=== PATIENT | male | born 1960 | race Caucasian/White ===

== ENCOUNTER → 2019-03-08 | Outpatient (CLI) | payer BC ==
--- NOTE | 2019-03-08 17:00 | KCIC ---
MRI Lumbar Spine without contrast History: Lumbago, chronic low back pain and bilateral extremity pain and numbness at times Technique: Multiplanar, multi sequential noncontrast MR imaging was performed of the lumbar spine. Comparison: January 25, 2015 Findings: Lumbar vertebral body stature is similar. There is minimal posterior subluxation of L4 relative to L5 and negligible anterior spondylolisthesis L3-4 as seen previously. Conus terminates near the superior aspect of L1. There is trace superior L5 endplate and superior S1 endplate edema likely reactive/degenerative in etiology. There is again hemangioma of S2. There is again advanced degenerative disc disease at L5-S1 with associated degenerative endplate change, mild to moderate degenerative disc disease greater posteriorly at L4-5 and minimally L3-4 and L1-2, also of the visualized T12-L1 level. T12-L1: There is minimal disc osteophyte complex, superimposed shallow protrusion more eccentric to the right lateral recess about to 3 mm AP without significant neural impingement or spinal stenosis. Neural foramina are adequate. There is mild facet hypertrophic change. L1-L2: There is minimal disc osteophyte complex and bulge. Spinal canal is overall adequate. There is moderate facet hypertrophic change and mild buckling of the ligamentum flavum. Neural foramina are adequate. L2-L3: There is prominence of posterior epidural fat. There is moderate to severe facet degenerative change and mild buckling of the ligamentum flavum. There is negligible disc osteophyte complex. Spinal canal is not significantly narrowed. Neural foramina are adequate. L3-L4: There is again broad posterior bulge. There is moderate to severe facet degenerative change and moderate buckling of the ligamentum flavum. Combination of findings again results in moderate to severe spinal stenosis with limited preserved subarachnoid space, degree of lateral recess stenosis bilaterally. There is again mild narrowing of the inferior left neural foramen with contact undersurface exiting left L3 nerve root by disc osteophyte complex and bulge extending to the extraforaminal region. Right neural foramen is overall adequate. L4-L5: There is disc osteophyte complex, superimposed bulge with indentation upon the ventral thecal sac greatest centrally and in the left lateral recess. In combination with mild buckling of the ligamentum flavum and moderate facet degenerative change, there is again mild narrowing of the far left lateral recess near the intervertebral disc space level. However there is new broad extrusion or sequestration extending below the intervertebral disc space in greatest dimension about 1.9 cm transverse by 0.8 cm AP by about 1.7 cm CC with inferior extent to the level of the inferior one third of the L5 vertebral body. There is resultant moderate to severe narrowing of the far right lateral recess and contact right L5 nerve root. There is very mild narrowing of the inferior neural foramina by disc osteophyte complex. L5-S1: There is again broad disc osteophyte complex and shallow bulge/protrusion, no significant impingement of the descending S1 nerve roots although complex proximity to the descending left S1 nerve root. Spinal canal is not significantly narrowed. There is fairly severe facet degenerative change. Disc osteophyte complex again results in moderate to severe neural foramina compromise bilaterally with contact exiting L5 nerve roots. Impression: 1. Comparing with the 2015 exam, there is now a broad extrusion or disc sequestration extending below the L4-5 intervertebral disc space, resulting in right lateral recess stenosis and contact right L5 nerve root. There is again moderate to severe spinal stenosis at L3-4 as described, mild lateral recess stenosis at the L4-5 intervertebral disc space level. There is degenerative disc disease greatest at L5-S1, multilevel spondylosis. There is multilevel facet degenerative change, mild abnormal alignment. There is neural foramina compromise as stated most notable bilaterally at L5-S1. Electronically signed by: Angel Vega MD (03/08/2019 4:57 PM) [facility]
== END | disposition home or self-care (01) ==
LOC: KCIC MRI 15:22
PROVIDERS: ATTEND Physician Assistant Medical
DX: M43.16 Spondylolisthesis, lumbar region (principal); M51.37 Other intervertebral disc degeneration, lumbosacral region; M25.78 Osteophyte, vertebrae; M51.25 Other intervertebral disc displacement, thoracolumbar region; M51.27 Other intervertebral disc displacement, lumbosacral region; M48.05 Spinal stenosis, thoracolumbar region; M47.817 Spondylosis without myelopathy or radiculopathy, lumbosacral region; G89.29 Other chronic pain
CPT/HCPCS: 72148

== ENCOUNTER → 2019-05-30 | Outpatient (CLI) | payer BC ==
[~2019-05-30] MED LIST: CARI350T PO; CETI10TA22 PO; DIPH25CA58 PO; DOCU-109 PO; FLUT1DIS3 IH; NAPR-514 PO; OXYC1TAB15 PO; VENTOLIN HFA18 GM INH; ZOLP10TA PO
[2019-05-30 15:34] LABS: BASO % 0 % (0-3); EOS # 0.1 x10^3/uL (0.0-0.7); EOS % 2 % (0-3); HEMOGLOBIN 15.9 g/dL (13.0-17.5); LYMPH # 1.7 x10^3/uL (1.0-4.8); LYMPH % 31 % (24-48); MEAN CORPUSCULAR HEMOGLOBIN 30 pg (25-35); MEAN CORPUSCULAR HGB CONC 34 g/dL (31-37); MEAN CORPUSCULAR VOLUME 89 fL (79-100); MONO # 0.4 x10^3/uL (0.0-1.1); MONO % 8 % (0-9); NEUT # 3.2 x10^3/uL (1.8-7.7); NEUT % 59 % (31-73); PLATELET COUNT 260 x10^3/uL (140-400); RED BLOOD COUNT 5.26 x10^6/uL (4.30-5.70); RED CELL DISTRIBUTION WIDTH 13.5 % (11.5-14.5); WHITE BLOOD COUNT 5.4 x10^3/uL (4.0-11.0)
[2019-05-30 15:56] LABS: ALBUMIN 4.4 g/dL (3.4-5.0); ALBUMIN/GLOBULIN RATIO 1.3 (1.0-1.7); CALCIUM 9.1 mg/dL (8.5-10.1); CREATININE 1.2 mg/dL (0.7-1.3); GFR 62.6; POTASSIUM 4.3 mmol/L (3.5-5.1); TOTAL BILIRUBIN 0.3 mg/dL (0.2-1.0); TOTAL PROTEIN 7.9 g/dL (6.4-8.2)
== END | disposition home or self-care (01) ==
LOC: SURGPAT 13:15
PROVIDERS: ATTEND Neurological Surgery
DX: Z01.818 Encounter for other preprocedural examination (principal); M51.26 Other intervertebral disc displacement, lumbar region; M48.061 Spinal stenosis, lumbar region without neurogenic claudication
CPT/HCPCS: 36415; 80053; 85025; 87641

== ENCOUNTER 2019-06-10 07:09 | Day surgery (SDC) | payer BC ==
--- NOTE | 2019-06-09 14:25 | HP ---
ADMIT DATE: 06/10/2019 PREOPERATIVE HISTORY AND PHYSICAL DATE OF SURGERY: 06/10/2019. HISTORY OF PRESENT ILLNESS: The patient is a pleasant 58-year-old who is having difficulty with low back pain and bilateral buttock pain. There is pain, which radiates down the right posterior thigh. There is also pain and numbness, which radiates to his legs and feet. The right side is more involved than the left. He rates his problem started in 1992 and 1993 and he has had intermittent difficulties since that time. Over the last few years, the pain has slowly worsened. He rates his pain as a 4-5/10. Running, standing and/or lifting increases pain. Sitting in a reclining position helps him. He has been taking oxycodone and naproxen. He has been through physical therapy and also core strengthening. He has had limited his activities recently. 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 PAST MEDICAL HISTORY: Arthritis. PAST SURGICAL HISTORY: Cholecystectomy and appendectomy, hernia surgery, right shoulder surgery. FAMILY HISTORY: Cancer. 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 . Denies substance abuse. Denies tobacco use. Drinks 2 alcoholic drinks daily. Drinks coffee. ALLERGIES: No known drug allergies. CURRENT MEDICATIONS: Naproxen, oxycodone, Soma, sinus medication, and allergy medication. REVIEW OF SYSTEMS: A 12-point review of systems was obtained and is noncontributory except for that mentioned above. PHYSICAL EXAMINATION: NEUROSURGERY EXAMINATION: GENERAL APPEARANCE: Alert, pleasant, no acute distress. HEAD: Normocephalic and atraumatic. SKIN: Warm and dry. MUSCULOSKELETAL: Lumbar paraspinal muscle bulk is normal, restricted range of motion of lumbar spine, dbkm-[id number]-lnyudelt tenderness of lower lumbar spine with palpation, normal range of motion of the lower extremities bilaterally. EXTREMITIES: No clubbing, cyanosis, or edema. NEUROLOGIC: Alert and oriented x 3, normal recent and remote memory, strength 5/5 in bilateral lower extremities, sensory was intact to light touch in bilateral lower extremities except for a diffuse decrease involving his right foot. Reflexes are trace and symmetric in lower extremities bilaterally, negative straight leg raising on the left, positive straight leg raising on the right, right buttock, posterior lateral thigh pain and forward-stooped gait. IMAGING: I reviewed a lumbar MRI scan. On that study from 03/08/2019, there is a principal abnormality at L3-L4 and L4-L5. At L3-L4, there is thickening of ligamentum flavum, which is associated with moderately severe lumbar spinal stenosis along with lateral recess stenosis bilaterally. There does appear to be contact of the left L3 nerve root and foramen. At L4-L5, he developed a new inferiorly herniated disc, which extends below the intervertebral disc space more than half of the body at L5. This is central and right sided and is associated with severe narrowing of the lateral recess and contact the right L5 nerve root. There is narrowing of the far left lateral recess at L4-L5 due to combination of ligamentum flavum thickening and buckling. ASSESSMENT/ PLAN: He has a problem with stenosis at L3-L4 and that is responsible for much of a neurogenic claudication-type symptoms, combined with a large inferior disc herniation L4-L5. My recommendation is lumbar microdecompressive surgery at L3-L4 combined with hemilaminotomy and laminectomy with microdiscectomy at L4-L5 from a right approach. I spoke with him about the surgery and the risks. I spoke about the technique and the operation and expected postoperative course. He would like to go ahead. We will make the arrangements. GAVIN HORNE MD DR: STEVE/gautam JOB#: [id number] / [id number] CARMELLA
[~2019-06-10] VITALS: Ht 180.3 cm; Wt 113.8 kg
[~2019-06-10 07:09] MED LIST changes: +BACITRACIN 50,000 UNIT in IV NORMAL SALINE 1000ML BAG 1,000 ML IRR ONE; +BUPIVACAINE-EPI 0.5%-1:200000 MPF 30 ML VIAL. INJ ONE; -DOCU-109 PO; +HYDROmorphone 2 MG/ML VIAL IV PRN; +IV RINGERS,LACTATED 1000ML 1,000 ML IV SCH; +ONDANSETRON PF 4 MG/2 ML VIAL. IV PRN; +PROCHLORPERAZINE 10 MG/2 ML VIAL. IV PRN; +fentaNYL PF VIAL 100 MCG/2 ML VIAL IV PRN
[2019-06-10] MEDS ORDERED: THROMBIN TOPICAL 20,000 UNIT SPRAY.SYRN KIT TP ONE (07:17)
[2019-06-10] MEDS ORDERED: GELATIN SPONGE SIZE 100. ONE (07:17)
[2019-06-10] MEDS ORDERED: KETOROLAC 60 MG/2 ML INJ FOR OR. ONE (07:17)
[2019-06-10] MEDS ORDERED: PROPOFOL 100 ML IV ONE (08:00)
[2019-06-10] MEDS ORDERED: DESFLURANE > 120 MINUTES IH ONE (08:08)
[2019-06-10] MEDS ORDERED: GLYCOPYRROLATE 1 MG/5 ML VIAL. ONE (08:08)
[2019-06-10] MEDS ORDERED: NEOSTIGMINE METHYLSULFATE 5 MG/5 ML SYRINGE. ONE (08:09)
[2019-06-10] MEDS ORDERED: MIDAZOLAM HCL/PF 2 MG/2 ML VIAL. ONE (08:09)
[2019-06-10] MEDS ORDERED: ROCURONIUM 50 MG/5 ML VIAL. ONE (08:09)
[2019-06-10] MEDS ORDERED: REMIFENTANIL 2 MG VIAL. IV ONE (08:09)
[2019-06-10] MEDS ORDERED: fentaNYL PF VIAL 100 MCG/2 ML VIAL ONE (08:09)
[2019-06-10] MEDS ORDERED: PROPOFOL 20 ML IV ONE (08:10)
[2019-06-10] MEDS ORDERED: LIDOCAINE 2% PF 5 ML VIAL. ONE (08:10)
[2019-06-10] MEDS ORDERED: DEXAMETHASONE SOD PHOS 4 MG/ML VIAL ONE (08:10)
[2019-06-10] MEDS ORDERED: ONDANSETRON PF 4 MG/2 ML VIAL. ONE (08:10)
[2019-06-10] MEDS ORDERED: PHENYLEPHRINE 10 MG/ML VIAL. ONE (08:10)
[2019-06-10] MEDS ORDERED: SCOPOLAMINE 1.5MG PATCH. TD ONE (09:00)
[2019-06-10] MEDS: MORPHINE SULFATE 2 MG/ML VIAL. IV PRN ×2 (12:39→12:57)
[2019-06-10] MEDS: fentaNYL PF VIAL 100 MCG/2 ML VIAL IV PRN ×2 (12:40→12:57)
[2019-06-10] MEDS ORDERED: DOCU-109 PO (12:45)
--- NOTE | 2019-06-10 12:46 | DISCH ---
DISCHARGE INSTRUCTIONS Condition on Discharge Condition on Discharge: Stable Activity After Discharge Activity Instructions for Disc: Activity as tolerated, Avoid exertion Other activity instructions: no driving for a week Bathing Instructions: Shower-keep dressing dry Lifting Instructions after Dis: No heavy lifting, No pulling or pushing, Do not lift >10 pounds Diet after Discharge Additional Diet Restrictions: resume home diet Wound Incision Care Wound/Incision Care: Ice to area for comfort Other wound/incision instructi: may remove dressing in 48 hour if dry then may shower, no soaking Contacting the after DC Call your doctor for: Concerns you may have Follow-Up Follow up with: Dr. Horne's nurse in 2 weeks [phone] GAVIN HORNE MD Jun 10, 2019 12:46
[2019-06-10] MEDS ORDERED: oxyCODONE/APAP 5/325 1 TAB TABLET PO ONE (13:15)
[2019-06-10 13:45] VITALS: BP 141/88
--- NOTE | 2019-06-10 20:15 | OP ---
DATE OF SURGERY: 06/10/2019 PREOPERATIVE DIAGNOSES: 1. Lumbar spinal stenosis, L3-L4. 2. Herniated lumbar disc, lateral recess stenosis L4-L5, right. POSTOPERATIVE DIAGNOSES: 1. Lumbar spinal stenosis, L3-L4. 2. Herniated lumbar disc, lateral recess stenosis L4-L5, right. OPERATION PERFORMED: 1. Lumbar laminectomy from a right direct approach, L3-L4. 2. Lumbar microdecompression and microdiscectomy L4-L5, right. The operation was done with EMG monitoring, SSEP monitoring, fluoroscopy, and microscopic dissection. SURGEON: Shayne Horne M.D. CORRECTION OFFICER PENITENTIARY: Mila Purcell APRN OPERATIVE INDICATIONS: The patient is a pleasant 58-year-old man who developed intractable back and primarily right lower extremity pain. On imaging studies, he had lumbar spinal stenosis at L3-L4 and inferiorly herniated disc at L4-L5. He failed conservative measures including physical therapy and I recommended lumbar surgery. I spoke about the surgery and the risks, the technique and he understood and wished to go ahead. DESCRIPTION OF PROCEDURE: Following general endotracheal anesthesia, the patient was positioned prone on the Palomo table. Lumbar region prepped and draped in standard fashion. AD hose and A-V impulse boots were applied for DVT prophylaxis. A microscope was draped. Fluoroscopy was draped and brought into the field. Monitoring was established. Ancef 2 grams was given less than 1 hour prior to initiation of the surgery. Using fluoroscopic guidance, a midline incision was made extending from upper L3 to inferior L5, dissected down through skin and subcutaneous tissue and reflected the paraspinal muscles and placed a Opheim microdisk retractor. I focused my attention first at L4-L5. I brought in the high speed air drill and there was considerable degenerative thickening of the facet joint and I drilled and worked and removed this material to gain access to the lamina, which I drilled with the high speed air drill through the microscope using microscopic technique. I performed a generous partial foraminotomy and then carried my bone work inferiorly to the inferior aspect of the pedicle of L5. I peeled away the thickened ligamentum flavum from above and peeled this away from medial to lateral and widely exposed the area. I gently retracted the dura medially. There was considerable scarring and there was a sequestered sac inferiorly with fluid. I opened this up and immediately the region was better decompressed. I entered into the disc space by excising the annulus with #11 blade and performed a discectomy and again as I worked, the area became very well decompressed. I explored, I carried my bone work further inferiorly. I felt that I had an excellent decompression. The dura was soft and mobile, but the operation in this area was difficult because of considerable scarring and I did not want to create a dural laceration, which introduced some caution. After I felt that I had an excellent decompression, I irrigated copiously and then I moved superiorly to L3-L4 where I drilled a generous hemilaminotomy and then tilted the patient away and drilled across the midline with a high speed air drill. There was considerable adipose tissue along with very thickened ligamentum flavum and I peeled this material away and fully decompressed the central canal on the right side, performing a partial foraminotomy. The disc was relatively firm and no discectomy was warranted. I irrigated copiously. I felt that I had an excellent decompression of both levels. I obtained excellent hemostasis. I closed the wound in layers with absorbable suture and the skin was closed with 4-0 subcuticular stitch. The operation went very well. The patient awakened uneventfully in recovery room in excellent condition. I was quite pleased with the surgery. SHAYNE HORNE MD DR: STEVE/gautam JOB#: [id number] / [id number] CARMELLA
--- NOTE | 2019-06-13 18:11 | PATHOLOGY ---
[facility] Accession Number: [id number] . 01 Material submitted: . vertebral column - LUMBAR DISC AND DECOMPRESSION . 01 Clinical history: . Lumbar stenosis, herniated disc. . 02 Diagnosis: Segments of fibrocartilaginous tissue and bone, lumbar disc and decompression: - Degenerative changes of fibrocartilaginous tissue. (JPM:chassis inspector; 06/13/2019) MBR/06/13/2019 . 02 Comment: There is no evidence of an acute inflammatory process or malignancy. (JPM:chassis inspector; 06/13/2019) . 02 Electronically signed: . Jonatan Burrows MD, Pathologist NPI- [id number] . 01 Gross description: . Received in formalin labeled "Ezra Worrell, lumbar disc and decompression" is a 4.5 x 4.5 x 2.0 cm aggregate of pedersen-brown rubbery soft tissue and scant bone. Professor Of Public Administration sections are submitted in cassette A1 following decalcification. ([facility] [place]; 06/12/2019) SYC/SYC . 02 Pathologist provided ICD-10: M99.73, M51.26 . 02 CPT . 608364, 034821 Specimen Comment: A courtesy copy of this report has been sent to Specimen Comment: [phone], . Specimen Comment: Report sent to / DR JONES Performed at: 01 [facility] [address], [place] [id number] MD Jay Walker MD Phone: [phone] Performed at: 02 [facility] [address] [place], [place] [id number] MD Jonatan Burrows MD Phone: [phone]
== END 2019-06-10 14:22 | disposition home or self-care (01) ==
LOC: SURG 07:09
PROVIDERS: ATTEND Neurological Surgery
DX: M51.26 Other intervertebral disc displacement, lumbar region (principal); M48.061 Spinal stenosis, lumbar region without neurogenic claudication; Z87.39 Personal history of other diseases of the musculoskeletal system and connective tissue; Z90.49 Acquired absence of other specified parts of digestive tract; Z98.890 Other specified postprocedural states; Z72.89 Other problems related to lifestyle
CPT/HCPCS: 63030; 63047; 76000; 88304; 88311; 97162; 97530; A7015; J0696; J1100; J1885; J2001; J2250; J2270; J2405; J2704; J2710; J3010; J3490; J7030

== ENCOUNTER → 2019-08-22 | Outpatient (CLI) | payer BC ==
[~2019-08-22] MED LIST changes: -BACITRACIN 50,000 UNIT in IV NORMAL SALINE 1000ML BAG 1,000 ML IRR ONE; -BUPIVACAINE-EPI 0.5%-1:200000 MPF 30 ML VIAL. INJ ONE; +DOCU-109 PO; -HYDROmorphone 2 MG/ML VIAL IV PRN; -IV RINGERS,LACTATED 1000ML 1,000 ML IV SCH; +MUCOUS RELIEF PO; -ONDANSETRON PF 4 MG/2 ML VIAL. IV PRN; -PROCHLORPERAZINE 10 MG/2 ML VIAL. IV PRN; -fentaNYL PF VIAL 100 MCG/2 ML VIAL IV PRN
[2019-08-22 09:01] LABS: BASO % 1 % (0-3); EOS # 0.1 x10^3/uL (0.0-0.7); EOS % 2 % (0-3); HEMATOCRIT 44.7 % (39.0-53.0); HEMOGLOBIN 14.8 g/dL (13.0-17.5); LYMPH # 1.5 x10^3/uL (1.0-4.8); LYMPH % 37 % (24-48); MEAN CORPUSCULAR HEMOGLOBIN 30 pg (25-35); MEAN CORPUSCULAR HGB CONC 33 g/dL (31-37); MEAN CORPUSCULAR VOLUME 89 fL (79-100); MONO # 0.3 x10^3/uL (0.0-1.1); MONO % 8 % (0-9); NEUT # 2.2 x10^3/uL (1.8-7.7); NEUT % 52 % (31-73); PLATELET COUNT 283 x10^3/uL (140-400); RED BLOOD COUNT 5.02 x10^6/uL (4.30-5.70); RED CELL DISTRIBUTION WIDTH 13.6 % (11.5-14.5); WHITE BLOOD COUNT 4.2 x10^3/uL (4.0-11.0)
[2019-08-22 09:10] LABS: BILIRUBIN,URINE NEGATIVE (NEG); CLARITY,URINE CLEAR; COLOR,URINE YELLOW; NITRITE,URINE NEGATIVE (NEG); PROTEIN,URINE NEGATIVE (NEG-TRACE)
[2019-08-22 09:13] LABS: PROTHROMBIN TIME PATIENT 12.9 SEC (11.7-14.0)
[2019-08-22 09:18] LABS: BACTERIA,URINE FEW /HPF (0-FEW); RBC,URINE RARE /HPF (0-2); SQUAMOUS EPITHELIAL CELL,UR OCC /LPF; WBC,URINE OCC /HPF (0-4)
[2019-08-22 09:42] LABS: ALBUMIN 4.4 g/dL (3.4-5.0); CREATININE 1.1 mg/dL (0.7-1.3); POTASSIUM 4.4 mmol/L (3.5-5.1)
--- NOTE | 2019-08-22 13:07 | EKG ---
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 RI6.01 Unconfirmed report No previous ECG available for comparison Electronically Signed On 08-23-2019 14:08:27 MANAGER ANIMATION by Zeferino Beckman
--- NOTE | 2019-08-22 14:36 | RAD ---
EXAM: CHEST 2 VIEWS. HISTORY: Preoperative risk factors. COMPARISON: None. FINDINGS: Frontal and lateral views of the chest are obtained. There is mild atelectasis in the bases. There are no confluent infiltrates. There is no pneumothorax or pleural effusion. The heart is not enlarged. Cholecystectomy clips are noted. IMPRESSION: 1. No confluent infiltrates. Electronically signed by: Debby Ziegler MD (08/22/2019 2:33 PM) [facility]
== END | disposition home or self-care (01) ==
LOC: SURGPAT 12:25
PROVIDERS: ATTEND Orthopaedic Surgery
DX: Z01.818 Encounter for other preprocedural examination (principal); M16.12 Unilateral primary osteoarthritis, left hip; M25.552 Pain in left hip; J98.11 Atelectasis; Z90.49 Acquired absence of other specified parts of digestive tract
CPT/HCPCS: 36415; 71046; 80048; 81001; 82040; 82306; 85025; 85610; 85651; 85730; 87641; 93005

== ENCOUNTER 2019-09-06 08:59 | Inpatient (IN) | payer BC ==
[2019-09-05] MEDS: IV NORMAL SALINE 1000ML BAG 1,000 ML IV SCH (21:00)
[~2019-09-06] VITALS: Ht 180.3 cm; Wt 114.3 kg
[~2019-09-06 08:59] MED LIST changes: +ACETAMINOPHEN 500 MG TABLET PO PRN; +GABAPENTIN 300 MG CAPSULE. PO PRN; +HYDROmorphone 2 MG/ML VIAL IV PRN; +MELOXICAM 7.5 MG TABLET PO PRN; +MORPHINE SULFATE 2 MG/ML VIAL. IV PRN; +MORPHINE SULFATE 5 MG, KETOROLAC 30MG VIAL 30 MG, ROPIVacaine 0.5% PF 60 ML, EPINEPHrin... INT ART ONE; +ONDANSETRON PF 4 MG/2 ML VIAL. IV PRN; +PROCHLORPERAZINE 10 MG/2 ML VIAL. IV PRN; +TRANEXAMIC ACID 1,000 MG in IV NS 50ML -- 1ST BAG INJ ONE; +TRANEXAMIC ACID 1,000 MG in IV NS 50ML -- 2ND BAG INJ ONE; +ceFAZolin 2GM PREMIX 2 GM/50 ML BAG IV ONE; +fentaNYL PF VIAL 100 MCG/2 ML VIAL IV PRN
[2019-09-06] MEDS: IV RINGERS,LACTATED 1000ML 1,000 ML IV SCH ×2 (09:52→18:51)
[2019-09-06] MEDS ORDERED: SCOPOLAMINE 1.5MG PATCH. TD ONE (10:00)
[2019-09-06 11:18] LABS: PROTHROMBIN TIME PATIENT 12.8 SEC (11.7-14.0)
[2019-09-06] MEDS ORDERED: LIDOCAINE 2% PF 5 ML VIAL. ONE (11:47)
[2019-09-06] MEDS ORDERED: PROPOFOL 20 ML IV ONE (11:47)
[2019-09-06] MEDS ORDERED: ONDANSETRON PF 4 MG/2 ML VIAL. ONE (11:48)
[2019-09-06] MEDS ORDERED: DEXAMETHASONE SOD PHOS 4 MG/ML VIAL ONE ×3 (11:48→16:39)
[2019-09-06] MEDS ORDERED: ROCURONIUM 50 MG/5 ML VIAL. ONE ×2 (11:48→15:57)
[2019-09-06] MEDS ORDERED: fentaNYL PF VIAL 100 MCG/2 ML VIAL ONE (11:49)
[2019-09-06] MEDS ORDERED: MIDAZOLAM HCL/PF 2 MG/2 ML VIAL. ONE (14:30)
--- NOTE | 2019-09-06 15:14 | HP ---
ADMIT DATE: 09/06/2019 CHIEF COMPLAINT: Left hip pain. HISTORY OF PRESENT ILLNESS: The patient is a 59-year-old male who had a previous hip arthroscopy by Dr. Faye for a torn labrum and never seemed to recover from that procedure. 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 We had previously discussed his severe degenerative changes in the left hip and the possible treatment options nonoperatively and operatively. He had also been having severe numbness consistent with spinal stenosis symptoms and underwent back surgery about 2 months ago and has recovered sufficiently at this point to go forward with a hip replacement as he previously desired. PAST MEDICAL HISTORY: Significant for degenerative joint disease, insomnia and fatigue. PAST SURGICAL HISTORY: Back surgery, most recently Achilles tendon repair, appendectomy, previous hip labral repair, cholecystectomy, hernia repair, shoulder surgery, tonsilloadenoidectomy. FAMILY HISTORY: Mother is alive and healthy. Father is with Hodgkin's lymphoma. SOCIAL HISTORY: Denies smoking or drug use. Occasional alcohol consumption and is . ALLERGIES: He has no known drug allergies. MEDICATIONS: List is reviewed. REVIEW OF SYSTEMS: Significant for recovering from his low back surgery and less severe numbness in his legs, but continue severe hip and groin pain, worse with activity and particularly on start-up. PHYSICAL EXAMINATION: VITAL SIGNS: Per his admission sheet. HEENT: Atraumatic, normocephalic. HEART: Regular rate and rhythm. LUNGS: Clear to auscultation bilaterally. ABDOMEN: Benign. EXTREMITIES: Examination of the left hip reveals pain on his already decreased range of motion, extremes on the left side, normal motion. No pain on the right. Normal alignment, stability bilateral hips and ankles. Negative straight leg raise bilaterally. IMAGING: X-rays show severe degenerative change with [id number]-mc-[id number] on the left hip. TREATMENT PLAN: I previously discussed with him the risks, benefits, postoperative course of total hip arthroplasty including the possibility of leg length discrepancy, premature wear or loosening, instability, infection, nerve or blood vessel damage, medical or other anesthetic complications among others. We also talked about the fact that I cannot guarantee anything with regard to his back pain, although sometimes if he walks better with the relief of the hip arthroplasty that can be help in terms of his back. Again, he has gone through his previous back surgery and wants to proceed with the total hip arthroplasty, having given informed consent and he will undergo [facility] admission to follow. FAIZA RAMIREZ MD DR: SHAZIA/gautam JOB#: [id number] / [id number]
[2019-09-06] MEDS ORDERED: HYDROmorphone 2 MG/ML VIAL ONE (15:53)
[2019-09-06] MEDS ORDERED: ceFAZolin SODIUM 1 GM VIAL ONE (16:38)
[2019-09-06] MEDS ORDERED: SEVOFLURANE > 120 MINUTES. IH ONE (16:38)
[2019-09-06] MEDS ORDERED: diphenhydrAMINE 50 MG/ML VIAL ONE (16:50)
[2019-09-06] MEDS ORDERED: NEOSTIGMINE METHYLSULFATE 5 MG/5 ML SYRINGE. ONE (16:52)
[2019-09-06] MEDS ORDERED: GLYCOPYRROLATE 1 MG/5 ML VIAL. ONE (16:52)
[2019-09-06] MEDS ORDERED: KETOROLAC 30 MG/ML VIAL. ONE (16:56)
[2019-09-06] MEDS ORDERED: fentaNYL PF VIAL 100 MCG/2 ML VIAL IV PRN (17:45)
[2019-09-06] MEDS ORDERED: MORPHINE SULFATE 2 MG/ML VIAL. IV PRN (17:45)
[2019-09-06] MEDS ORDERED: METOCLOPRAMIDE HCL 10 MG/2 ML VIAL. IV PRN (17:45)
[2019-09-06] MEDS ORDERED: ZOLPIDEM 5 MG TABLET. PO PRN (17:45)
[2019-09-06] MEDS ORDERED: diphenhydrAMINE 50 MG/ML VIAL IV PRN (17:45)
[2019-09-06] MEDS ORDERED: DEXTROSE 50% 25 GM / 50ML DISP.SYRIN. IV PRN (17:45)
[2019-09-06] MEDS ORDERED: CALCIUM CARBONATE 500 MG TAB.CHEW PO PRN (17:45)
[2019-09-06] MEDS ORDERED: NON FORMULARY ITEM (Zolpidem Tartrate (Ambien) 10 MG) PO PRN (17:45)
[2019-09-06] MEDS ORDERED: 0.9 % SODIUM CHLORIDE 10 ML DISP.SYRIN. IV PRN (17:45)
[2019-09-06] MEDS ORDERED: PROCHLORPERAZINE 5 MG TABLET. PO PRN (17:45)
[2019-09-06] MEDS ORDERED: NON FORMULARY ITEM (Albuterol Sulfate (Ventolin Hfa Inhaler) 2 PUFF) INH PRN (17:45)
--- NOTE | 2019-09-06 17:53 | PDOC4 ---
Operative Note Operative Note Date of surgery: 09/06/2019 Preoperative diagnosis: Degenerative joint disease left hip Postoperative diagnosis: Same Operative procedure: Left total hip arthroplasty Surgeon: Brisa Assist: Adalberto Simental nurse practitioner Anesthesia: Gen. Estimated blood loss: 200 mL Complications: None Specimens: Femoral head to pathology Drains: Hemovac and intra-articular pain catheter Operative indications: Please see my dictated history and physical of today and previous clinic notes for detailed operative indications and note that we covered the possibility of leg length inequality instability premature wear or loosening infection nerve or blood vessel damage medical or other anesthetic competitions among others he wishes to proceed with surgical evaluation and treatment which will include joint center admission to follow. Operative text: Patient was identified procedure verified patient placed in the supine position on the operating table. After adequate amounts of general anesthesia were administered he was placed decubitus left side up with the Stulberg hip positioner all bony prominences were well-padded and the left hip was prepped and draped in standard sterile fashion. After timeout was performed patient procedure identified and verified a curvilinear incision was made over the left greater trochanter iliotibial band and gluteal fascia were split in line with their fibers Charnley retractor was placed external rotators were divided from their insertion hip capsule split in a T fashion and the hip was dislocated femoral neck cut was made using the femoral cutting guide and the femoral head was removed with both femoral and acetabular surfaces severely degenerative and it was sent for pathological evaluation contents of the fovea and labrum were excised with electrocautery and reaming was carried up to a size 55 with the sclerotic bone removed to good bleeding bone and a size 56 Santos [employer] Nephew sticktight coated hemispherical cup with cluster holes was impacted in proper version and a single superiorly directed screw placed. A 40 mm inside diameter standard liner was impacted femur was reamed and broached and a size 13 standard offset was trial fit with a +8 head resulting in reproduction of the leg length and offset with excellent stability to beyond 60 internal rotation at 90 hip flexion. Trial components removed thorough irrigation carried out normal saline solution and a size 13 Synergy standard offset stem was impacted with a +8 Oxinium femoral head reduced and found to have equivalent stability and leg length and offset. Hip capsule and external rotators were repaired with #5 Ethibond suture. Hemovac drain and pain catheter were placed pain catheter mixture was injected throughout the joint capsule fascia was closed with #5 Ethibond interrupted and #1 PDS strata fix Monocryl subcutaneous closure with layered Vicryl suture in a buried fashion subcuticular 3-0 Monocryl strata fix and a stephany dressing with Acticoat were placed. Patient was returned to recovery room in stable condition having tolerated the procedure well Adalberto Simental nurse practitioner was present for the procedure and assisted in the prepping draping positioning retracting and skin closure FAIZA RAMIRZE MD Sep 06, 2019 17:53
[2019-09-06] MEDS: fentaNYL PF VIAL 100 MCG/2 ML VIAL IV PRN ×2 (18:52→19:41)
[2019-09-06 19:15] VITALS: BP 149/84
[2019-09-06] MEDS: ALBUTEROL SULFATE 2.5 MG/3 ML NEBU. NEB PRN (19:43)
[2019-09-06 19:45] VITALS: BP 136/88
[2019-09-06] MEDS ORDERED: KETOROLAC 30MG VIAL 30 MG, BUPIVACAINE MPF 0.25% 20 ML, EPINEPHrine 0.5 MG in TOTAL VOL... INT ART SCH (19:45)
[2019-09-06 20:00] VITALS: BP 119/76
[2019-09-06] MEDS ORDERED: NEOMY/BACITR/POLYMYXIN OINT PACKET. TP ONE (20:00)
[2019-09-06 21:00] VITALS: BP 128/58
[2019-09-06] MEDS: diphenhydrAMINE HCL 25 MG CAPSULE PO SCH (21:37)
[2019-09-06] MEDS: oxyCODONE IR 5 MG TABLET PO PRN (21:45)
[2019-09-06 23:20] VITALS: BP 124/82
[2019-09-06] MEDS: KETOROLAC 30MG VIAL 30 MG, BUPIVACAINE MPF 0.25% 20 ML, EPINEPHrine 0.5 MG in TOTAL VOL... INT ART SCH (23:35)
[2019-09-07] MEDS: CYCLOBENZAPRINE 10 MG TABLET. PO PRN (00:06)
[2019-09-07] MEDS: fentaNYL PF VIAL 100 MCG/2 ML VIAL IV PRN (02:10)
[2019-09-07 03:00] VITALS: BP 132/80
[2019-09-07 04:38] LABS: PROTHROMBIN TIME PATIENT 13.9 SEC (11.7-14.0)
[2019-09-07] MEDS: KETOROLAC 30MG VIAL 30 MG, BUPIVACAINE MPF 0.25% 20 ML, EPINEPHrine 0.5 MG in TOTAL VOL... INT ART SCH (05:53)
[2019-09-07] MEDS ORDERED: MAGNESIUM HYDROXIDE 2,400 MG/30 ML ORAL.SUSP. PO PRN (06:00)
[2019-09-07] MEDS: ONDANSETRON ODT 4 MG TAB.RAPDIS. PO SCH ×3 (06:00→11:36)
[2019-09-07] MEDS: ONDANSETRON PF 4 MG/2 ML VIAL. IV SCH ×3 (06:00→11:47)
[2019-09-07] MEDS: traMADol 50 MG TABLET PO SCH ×3 (06:01→17:29)
[2019-09-07] MEDS: GABAPENTIN 100 MG CAPSULE. PO SCH ×3 (06:01→20:49)
[2019-09-07 07:03] VITALS: BP 124/83
[2019-09-07] MEDS: ALBUTEROL SULFATE 2.5 MG/3 ML NEBU. NEB PRN (07:20)
--- NOTE | 2019-09-07 07:21 | NUR ---
Admit last noc s/p left total hip. VSS. Dressing has been reinforced. RT notified for neb treatment. C/o sore throat and inability to cough "stuff up."
[2019-09-07] MEDS: MULTIVITAMIN with MINERAL TABLET. PO SCH (07:55)
[2019-09-07] MEDS: ACETAMINOPHEN 500 MG TABLET PO SCH ×3 (07:55→20:48)
[2019-09-07] MEDS: FERROUS SULFATE 325 MG TABLET. PO SCH ×2 (07:55→17:29)
[2019-09-07] MEDS: SENNOSIDES/DOCUSATE 8.6/50MG TABLET. PO SCH (07:55)
[2019-09-07] MEDS: CETIRIZINE HCL 10 MG TABLET. PO SCH (07:56)
--- NOTE | 2019-09-07 08:41 | RAD ---
EXAM: HIP LEFT 2V WITH PELVIS. HISTORY: Total hip arthroplasty. COMPARISON: 01/17/2019. FINDINGS: A left total hip arthroplasty is in expected alignment. The acetabular component is fixed by one screw and the femoral component uncemented. No fractures are identified. There is mildly decreased femoral head/neck offset superolaterally on the right. The joint spaces of the right hip appear maintained. The right femoral head is mildly undercovered. There are moderate degenerative changes of the lower lumbar spine. IMPRESSION: 1. Left total hip arthroplasty in expected alignment. 2. Correlate for femoroacetabular impingement on the right. Electronically signed by: Debby Ziegler MD (09/07/2019 8:38 AM) [facility]
[2019-09-07] MEDS ORDERED: FLU VAX QS 2019-20 (36MOS+)/PF 0.5 ML SYRINGE. VAX IM ONE (09:00)
[2019-09-07] MEDS: oxyCODONE IR 5 MG TABLET PO PRN ×3 (09:20→20:50)
--- NOTE | 2019-09-07 11:30 | NUR ---
Pharmacy Warfarin Dosing Note S:Pharmacy consulted to assist with anticoagulation therapy started 09/06/19 with target INR: 1.6 - 2.5 O:OXANA WASHBURN is a 59 year old M with MARY LABS: Last INR: 1.1 Last HGB: 12.8 Last HCT: Last PLT: Previous Regimen: Vitamin K given: N Drug Interaction Changes: Ongoing Drug Interactions: A:INR of 1.1 is below desired range. Target range for this patient is: 1.6 - 2.5. P: Warfarin dose: 7.5 mg Today at 1600. Bridge Therapy: None Next INR due tomorrow. Pharmacy anticoagulation service will continue to follow. Trent Jarrett [facility], 09/07/19 [id number]
[2019-09-07] MEDS ORDERED: ONDANSETRON ODT 4 MG TAB.RAPDIS. PO PRN (12:00)
[2019-09-07] MEDS ORDERED: ONDANSETRON PF 4 MG/2 ML VIAL. IV PRN (12:00)
[2019-09-07] MEDS ORDERED: BISACODYL 10 MG SUPP.RECT. PR PRN (16:00)
[2019-09-07] MEDS ORDERED: WARFARIN 7.5 MG TABLET. PO ONE ×2 (16:00)
--- NOTE | 2019-09-07 16:48 | PDOC ---
PROGRESS NOTES Subjective Subjective Problems overnight: Hip is sore and a little bit weak but no grinding or groin pain on ambulation Objective Vital Signs Vital Signs Date Time Temp Pulse Resp B/P (MAP) Pulse Ox O2 Delivery O2 Flow Rate FiO2 09/07/19 13:02 Room Air 09/07/19 07:23 95 09/07/19 07:07 18 09/07/19 07:03 98.3 98 124/83 (97) 98.3 09/06/19 23:20 3.0 Physical Exam Dressing was changed due to some drainage from the intra-articular catheter leg lengths are equal distal neurovascular status intact Labs Laboratory Tests Test 09/06/19 09:50 09/07/19 04:10 Prothrombin Time 12.8 SEC (11.7-14.0) 13.9 SEC (11.7-14.0) Prothromb Time International Ratio 1.0 (0.8-1.1) 1.1 (0.8-1.1) Activated Partial Thromboplast Time 28 SEC (24-38) Hemoglobin 12.8 g/dL (13.0-17.5) Laboratory Tests Test 09/07/19 04:10 Hemoglobin 12.8 g/dL (13.0-17.5) Prothrombin Time 13.9 SEC (11.7-14.0) Prothromb Time International Ratio 1.1 (0.8-1.1) Imaging Excellent component alignment on postop x-rays Assessment Assessment POD# 1 left total hip arthroplasty Plan Plan of Care Continue physical therapy weightbearing as tolerated standard total hip precautions Coumadin anticoagulation FAIZA RAMIREZ MD Sep 07, 2019 16:48
[2019-09-07] MEDS: IV NORMAL SALINE 1000ML BAG 1,000 ML IV SCH (17:31)
[2019-09-07 18:18] VITALS: BP 132/77
[2019-09-07] MEDS: diphenhydrAMINE HCL 25 MG CAPSULE PO SCH (18:59)
--- NOTE | 2019-09-07 21:00 | NUR ---
Flu shot given left deltoid. [facility] would not accept scan. Roxicodone given for c/o left hip/groin soreness. Ambulated to toilet w/ SBA w/o difficulty.
[2019-09-08] MEDS: oxyCODONE IR 5 MG TABLET PO PRN ×5 (05:34→22:39)
[2019-09-08] MEDS: ACETAMINOPHEN 500 MG TABLET PO SCH ×4 (05:34→21:55)
[2019-09-08] MEDS: GABAPENTIN 100 MG CAPSULE. PO SCH ×3 (05:37→21:55)
[2019-09-08 06:00] VITALS: BP 126/83
[2019-09-08] MEDS: traMADol 50 MG TABLET PO SCH ×4 (06:00→17:20)
[2019-09-08 07:45] LABS: HEMATOCRIT 37.5 % (39.0-53.0); HEMOGLOBIN 12.5 g/dL (13.0-17.5)
[2019-09-08 07:52] LABS: PROTHROMBIN TIME PATIENT 13.8 SEC (11.7-14.0)
[2019-09-08] MEDS: SENNOSIDES/DOCUSATE 8.6/50MG TABLET. PO SCH (08:07)
[2019-09-08] MEDS: CETIRIZINE HCL 10 MG TABLET. PO SCH (08:07)
[2019-09-08] MEDS: FERROUS SULFATE 325 MG TABLET. PO SCH ×2 (08:07→17:20)
[2019-09-08] MEDS: CYCLOBENZAPRINE 10 MG TABLET. PO PRN ×2 (08:07→12:27)
[2019-09-08] MEDS: MULTIVITAMIN with MINERAL TABLET. PO SCH (08:07)
--- NOTE | 2019-09-08 12:24 | NUR ---
Pharmacy Warfarin Dosing Note S:Pharmacy consulted to assist with anticoagulation therapy started 09/06/19 with target INR: 1.6 - 2.5 O:OXANA WASHBURN is a 59 year old M with [facility]: Last INR: 1.1 Last HGB: 12.5 Last HCT: 37.5 Last PLT: Last dose of 7.5 mg given on 09/07/19 at Previous Regimen: Vitamin K given: N Drug Interaction Changes: Ongoing Drug Interactions: A:INR of 1.1 is below desired range. Target range for this patient is: 1.6 - 2.5 P: Warfarin dose: 5 mg Today at 1600 Bridge Therapy: None Next INR due TOMORROW. Pharmacy anticoagulation service will continue to follow. AMAURY PEREZ [facility], 09/08/19 [id number]
[2019-09-08] MEDS ORDERED: WARFARIN 5 MG TABLET. PO ONE (16:00)
[2019-09-08 18:36] VITALS: BP 118/77
[2019-09-08] MEDS: diphenhydrAMINE HCL 25 MG CAPSULE PO SCH (21:55)
[2019-09-09] MEDS: traMADol 50 MG TABLET PO SCH ×3 (00:15→12:52)
[2019-09-09] MEDS: ACETAMINOPHEN 500 MG TABLET PO SCH ×3 (03:44→14:11)
[2019-09-09] MEDS: oxyCODONE IR 5 MG TABLET PO PRN ×3 (03:44→14:11)
[2019-09-09 05:33] VITALS: BP 126/80
[2019-09-09] MEDS: GABAPENTIN 100 MG CAPSULE. PO SCH ×2 (05:45→14:11)
[2019-09-09 05:59] LABS: HEMATOCRIT 35.5 % (39.0-53.0); HEMOGLOBIN 11.9 g/dL (13.0-17.5)
[2019-09-09 06:40] LABS: PROTHROMBIN TIME PATIENT 14.1 SEC (11.7-14.0)
[2019-09-09] MEDS: CETIRIZINE HCL 10 MG TABLET. PO SCH (08:52)
[2019-09-09] MEDS: FERROUS SULFATE 325 MG TABLET. PO SCH (08:52)
[2019-09-09] MEDS: SENNOSIDES/DOCUSATE 8.6/50MG TABLET. PO SCH (08:52)
[2019-09-09] MEDS: MULTIVITAMIN with MINERAL TABLET. PO SCH (08:52)
--- NOTE | 2019-09-09 10:04 | PDOC ---
PROGRESS NOTES Subjective Subjective Problems overnight: Seen by Mr. Mora yesterday continues to do well with physical therapy just a bit weak and sore as expected to the left hip but groin pain is much decreased Objective Vital Signs Vital Signs Date Time Temp Pulse Resp B/P (MAP) Pulse Ox O2 Delivery O2 Flow Rate FiO2 09/09/19 06:41 Room Air 09/09/19 05:45 18 93 09/09/19 05:33 98.7 91 126/80 (95) 98.7 09/06/19 23:20 3.0 Physical Exam On examination leg lengths are equal distal neurovascular status intact stephany dressing has only slight drainage posterior and distal no surrounding redness Labs Laboratory Tests Test 09/08/19 07:20 09/09/19 05:30 Hemoglobin 12.5 g/dL (13.0-17.5) 11.9 g/dL (13.0-17.5) Hematocrit 37.5 % (39.0-53.0) 35.5 % (39.0-53.0) Mean Corpuscular Hemoglobin Concent 33 g/dL (31-37) 34 g/dL (31-37) Prothrombin Time 13.8 SEC (11.7-14.0) 14.1 SEC (11.7-14.0) Prothromb Time International Ratio 1.1 (0.8-1.1) 1.1 (0.8-1.1) Laboratory Tests Test 09/09/19 05:30 Hemoglobin 11.9 g/dL (13.0-17.5) Hematocrit 35.5 % (39.0-53.0) Mean Corpuscular Hemoglobin Concent 34 g/dL (31-37) Prothrombin Time 14.1 SEC (11.7-14.0) Prothromb Time International Ratio 1.1 (0.8-1.1) Assessment Assessment POD# left total hip arthroplasty Plan Plan of Care Plan discharge today with outpatient physical therapy Coumadin anticoagulation per pharmacy FAIZA RAMIREZ MD Sep 09, 2019 10:04
[2019-09-09] MEDS ORDERED: WARF-31 PO (10:48)
[2019-09-09] MEDS ORDERED: OXYC5TAB88 PO (10:53)
[2019-09-09 11:52] VITALS: BP 136/79
--- NOTE | 2019-09-09 12:48 | NUR ---
Pharmacy Warfarin Dosing Note S:Pharmacy consulted to assist with anticoagulation therapy started 09/06/19 with target INR: 1.6 - 2.5 O:OXANA WASHBURN is a 59 year old M with [facility]: Last INR: 1.1 Last HGB: 12.5 Last HCT: 37.5 Last PLT: Last dose of 7.5 mg given on 09/07/19 at Previous Regimen: Vitamin K given: N Drug Interaction Changes: Ongoing Drug Interactions: A:INR of 1.1 is below desired range. Target range for this patient is: 1.6 - 2.5 P: Warfarin dose: 5 mg Today prior to DC Bridge Therapy: None Next INR due Wednesday 09/12 Pharmacy anticoagulation service will continue to follow. AMAURY PEREZ [facility], 09/09/19 2455
[2019-09-09] MEDS ORDERED: WARFARIN 7.5 MG TABLET. PO ONE (14:30)
--- NOTE | 2019-09-09 15:07 | PATHOLOGY ---
[facility] Accession Number: [id number] . 01 Material submitted: . femur - FEMORAL HEAD, LEFT. Modifiers: left, head . 01 Clinical history: . Primary osteoarthritis . 02 Diagnosis: Femoral head and neck and separate segments of bone and soft tissue, left total hip arthroplasty: - Advanced degenerative arthritis. (JPM:kameron; 09/09/2019) QMS 09/09/2019 0818 Local . 02 Comment: There is no evidence of malignancy. . 02 Electronically signed: . Jonatan Burrows MD, Pathologist NPI- [id number] . 01 Gross description: . Received in formalin labeled "Ezra Worrell, left femoral head," is a femoral head with attached femoral neck measuring 6.4 x 5.8 x 5.4 cm in greatest dimensions admixed with a 7.4 x 5.3 x 1.6 cm aggregate of smaller bone and soft tissue fragments. The femoral head articular surface is smooth to granular and yellow-pedersen to dark brown in appearance, displaying an area of dusky purple-pedersen eburnation measuring 4.1 x 2.1 cm. Extensive dusky callejas-pedersen osteophytic lipping is noted at the peripheral articular surface. Serial sectioning through the femoral head reveals pale yellow-pedersen to partially hemorrhagic cut surfaces, with dusky callejas-pedersen discoloration noted underlying the articular surface eburnation and osteophytic lipping. Lead Painter femoral head eburnation and osteophytic lipping are submitted in cassette A1, following decalcification. The additionally received bone and soft tissue fragments are submitted representatively in cassette A2, following decalcification. (DAC; 09/08/2019) XDC/XDC 09/09/2019 0817 Local . 02 Pathologist provided ICD-10: M16.12 . 02 CPT . 700455, [id number] Specimen Comment: A courtesy copy of this report has been sent to [phone], [phone] Specimen Comment: [id number] Specimen Comment: Report sent to / DR JONES Performed at: 01 [facility] [address] [place] [address] [address], [place] [id number] MD Jay Walker MD Phone: [phone] Performed at: 02 [facility] [address] [place], [place] [id number] MD Jonatan Burrows MD Phone: [phone]
--- NOTE | 2019-09-09 15:59 | NUR ---
reviewed discharge instructions with patient son and sister. reviewed restrictions to activities of daily such as bathing, dressing exercising and and restrictions to hip. follow up with dr. Ledezma. all questions answered regarding hip restrictions.
--- NOTE | 2019-09-13 08:00 | DS ---
DATE OF DISCHARGE: 09/09/2019 PRINCIPAL DIAGNOSIS: Degenerative joint disease, left hip. PROCEDURE: Left total hip arthroplasty. DISPOSITION: Home with outpatient physical therapy. DISCHARGE MEDICATIONS: Include oxycodone 5 mg p.o. q.4h. p.r.n. pain, Coumadin as directed by anticoagulation clinic. Resume preoperative medications except for naproxen, which has been discontinued. FOLLOWUP: Follow up with Dr. Ledezma in two weeks. ACTIVITY: Weightbearing as tolerated. Standard total hip precautions. Maintain ANABELA dressing. Report any saturation of the dressing, redness, erythema, uncontrolled pain, fever, chills or other problems. BRIEF DESCRIPTION OF HOSPITAL COURSE: The patient underwent an uncomplicated total hip arthroplasty, had resolution of his groin pain postoperatively. Distal neurovascular status was all intact. He ambulated with physical therapy assistance and did have some soreness and weakness as expected in the hip, but otherwise got around well and safely in his transfers and activities of daily living and physical therapy, was otherwise medically stable throughout his stay and was discharged in stable condition. FAIZA LEDEZMA MD DR: SHAZIA/gautam JOB#: [id number] / [id number]
== END 2019-09-09 15:00 | disposition home or self-care (01) | DRG 470 ==
LOC: OPSVCIP 08:59 → 4 SOUTHEST 19:10
PROVIDERS: ADMIT Orthopaedic Surgery; ATTEND Orthopaedic Surgery
PROC: 0SRB06Z Replacement of Left Hip Joint with Oxidized Zirconium on Polyethylene Synthetic Substitute, Open Approach (ICD-10-PCS; principal; 2019-09-06 11:30)
DX: M16.12 Unilateral primary osteoarthritis, left hip (principal); Z80.7 Family history of other malignant neoplasms of lymphoid, hematopoietic and related tissues; Z96.642 Presence of left artificial hip joint; G47.00 Insomnia, unspecified; Z79.899 Other long term (current) drug therapy; Z91.048 Other nonmedicinal substance allergy status
CPT/HCPCS: 36415; 73502; 85014; 85018; 85610; 85730; 86850; 86900; 86901; 88304; 88311; 94640; 94760; A7015; C1713; J0171; J0690; J0696; J1100; J1170; J1200; J1885; J2001; J2250; J2270; J2405; J2704; J2710; J2795; J3010; J3490; J7030; J7120; J7613; Q0162; Q0163; 97116; 97150; 97530; 97535; G0378